=== PATIENT | male | born 1985 | race Caucasian/White ===

== ENCOUNTER 2017-03-17 19:31 | Emergency (ER) | payer SELFPAY ==
[2017-03-17 19:42] VITALS: RESP 18; TEMP 97.9; O2SAT 100
[2017-03-17] MEDS ORDERED: Oxycodone/Acetaminophen 5/325 mg Tab PO STA (20:05)
[2017-03-17] MEDS ORDERED: Oxycodone/Acetaminophen 5/325 mg Tab ONE (20:13)
--- NOTE | 2017-03-17 20:36 | C.PDOC ---
History Of Present Illness A 31 year old male presents to the emergency room with complaints of left upper toothache for 4 days. Patient reports that he took Motrin with some relief but it is no longer helping. Patient notes a dental appointment on 03/20/17. Patient denies any headaches, dizziness, fever, chills, nausea, vomiting, or any other complaints. Time Seen by Provider: 03/17/17 19:51 Chief Complaint (Nursing): Dental Pain History Per: Patient History/Exam Limitations: no limitations Onset/Duration Of Symptoms: Days (4) Current Symptoms Are (Timing): Still Present Severity: Mild Quality: Positive for: "Pain" Recent travel outside of the [place]: No Past Medical History Reviewed: Historical Data, Nursing Documentation, Vital Signs Vital Signs: Last Vital Signs Temp 97.9 F 03/17/17 19:39 Pulse 79 03/17/17 20:36 Resp 18 03/17/17 20:36 BP 135/75 03/17/17 20:36 Pulse Ox 100 03/17/17 21:26 Family History: States: Unknown Family Hx - Social History Hx Tobacco Use: Yes Hx Alcohol Use: Yes Hx Substance Use: No - Immunization History Hx Tetanus Toxoid Vaccination: No Hx Influenza Vaccination: No Hx Pneumococcal Vaccination: No Review Of Systems Except As Marked, All Systems Reviewed And Found Negative. Constitutional: Negative for: Fever, Chills ENT: Positive for: Other (Left upper toothache) Gastrointestinal: Negative for: Nausea, Vomiting, Diarrhea Neurological: Negative for: Headache, Dizziness Physical Exam - Physical Exam Appears: Well, Non-toxic Skin: Normal Color, Warm, Dry, No Rash Head: Atraumatic, Normacephalic Eye(s): bilateral: Normal Inspection, EOMI Ear(s): Bilateral: Normal Nose: Normal, No Discharge, No Tenderness Oral Mucosa: Moist Tongue: Normal Appearing, No Swelling, No Erythema, No Other (elevation of floor of the mouth) Lips: Normal Appearing, No Swelling, No Erythema Teeth: Caries (deep caries to the upper left posterior molar with localized gingival tenderness.) Gingiva: Erythema (localized left upper ), No Swelling, Tender Throat: Normal Neck: Normal, Normal ROM, No Midline Cervical Tenderness, No Paracervical Tenderness, Supple Neurological/Psych: Oriented x3, Normal Speech, Normal Cognition ED Course And Treatment O2 Sat by Pulse Oximetry: 100 Reassessment Condition: Improved Medical Decision Making Medical Decision Making: Impression: A 31 year old male with a left upper toothache. Deep caries to upper left molar with localized gingival tenderness noted on examination. Plan: -- Percocet & Penicillin VK Progress notes: Patient given Percocet & Penicillin VK. On reassessment, patient is resting comfortably, and is in no acute distress. Patient is afebrile and is tolerating PO. 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 Disposition Counseled Patient/Family Regarding: Diagnosis, Need For Followup, Rx Given - Disposition Referrals: Dentist, PMD [Other] Disposition: HOME/ ROUTINE Disposition Time: 20:35 Condition: STABLE Additional Instructions: Please follow up with dentist Return to ER if worse Prescriptions: Acetaminophen with Codeine [Tylenol with Codeine #3 Tablet] 2 each PO QID #14 tablet Penicillin VK [Pen-Vee K] 2 tab PO BID #28 tab Instructions: Dental Caries (ED) - Clinical Impression Clinical Impression: Dental caries, Toothache - Scribe Statement The provider has reviewed the documentation as recorded by the Mahoganyible Benjamin All medical record entries made by the Mahoganyible were at my direction and personally dictated by me. I have reviewed the chart and agree that the record accurately reflects my personal performance of the history, physical exam, medical decision making, and the department course for this patient. I have also personally directed, reviewed, and agree with the discharge instructions and disposition.
[2017-03-17 20:37] VITALS: BP 135/75; PULSE 79
== END 2017-03-17 20:38 | disposition home or self-care (01) ==
LOC: C.ER 19:31
DX: K02.9 Dental caries, unspecified (principal)

== ENCOUNTER 2018-03-09 15:49 | Emergency (ER) | payer SELFPAY ==
[2018-03-09 16:06] VITALS: BMI 23.7
[2018-03-09 16:08] VITALS: BP 138/75; PULSE 80; RESP 18; TEMP 98.5; O2SAT 100
--- NOTE | 2018-03-09 16:28 | C.PDOC ---
History Of Present Illness 32 y/o male comes in to the ED for evaluation of left upper toothache gradually developed for the past 2-3 days. Since this morning he developed some left upper cheek swelling. Patient denies fever, chills, recent illness, headache, dizziness, drooling, trismus, throat swelling or tightness, dyspnea, SOB, cough , denies recent dental work. Ambulate to Ed for evaluation, not in any apparent distress. Time Seen by Provider: 03/09/18 16:14 Chief Complaint (Nursing): Dental Pain History Per: Patient History/Exam Limitations: no limitations Onset/Duration Of Symptoms: Days Current Symptoms Are (Timing): Still Present Past Medical History Reviewed: Historical Data, Nursing Documentation, Vital Signs Vital Signs: Last Vital Signs Temp 98.5 F 03/09/18 16:07 Pulse 80 03/09/18 16:07 Resp 18 03/09/18 16:07 BP 138/75 03/09/18 16:07 Pulse Ox 100 03/09/18 16:44 - Medical History PMH: No Chronic Diseases Surgical History: Hernia Repair Family History: States: Unknown Family Hx - Social History Hx Tobacco Use: Yes Hx Alcohol Use: Yes Hx Substance Use: No - Immunization History Hx Tetanus Toxoid Vaccination: No Hx Influenza Vaccination: No Hx Pneumococcal Vaccination: No Review Of Systems Except As Marked, All Systems Reviewed And Found Negative. Constitutional: Negative for: Fever, Chills ENT: Positive for: Mouth Swelling (and dental pain). Negative for: Other ( drooling) Physical Exam - Physical Exam Appears: Well, Non-toxic, No Acute Distress Skin: Normal Color, Warm, Dry, No Rash Head: Normacephalic Eye(s): bilateral: PERRL Ear(s): Bilateral: Normal Nose: No Flaring, No Discharge, No Deformity, No Tenderness Oral Mucosa: Moist, No Drooling, No Trismus Tongue: Normal Appearing Lips: Normal Appearing Teeth: Caries (left upper 2nd premolar large cavity with gingival edema and erythema) Gingiva: Erythema, Swelling, Abscess (at left upper 2nd molar) Throat: No Erythema, No Drooling, Other (Uvula midline, no edmea.) Neck: Trachea Midline, Supple Respiratory: No Decreased Breath Sounds, No Accessory Muscle Use, No Stridor, No Wheezing Neurological/Psych: Oriented x3, Normal Speech ED Course And Treatment O2 Sat by Pulse Oximetry: 100 (RA) Pulse Ox Interpretation: Normal Progress Note: On re-evaluation, pt is awake, comfortable, not in any apparent distress. Afebrile, hemodynamicaly stable. PulseOx 100% RA. Neck: SUpple, (- ) meningeal sign. ENT: exam c/w Left upper 2nd premolar tooth abscess, no facial cellulitis. No drooling, no trismus. Uvula midline, no edema. Lungs: CTA B/L, BS equal B/L. Neurologicaly intact. Pt advised on course of ds. Pt denies allergy to penicillin. Abx given. ref. to f/u with Dentist in 2 days for re-eval. return to ED if any worsening or new changes. Disposition Counseled Patient/Family Regarding: Diagnosis, Need For Followup, Rx Given - Disposition Referrals: [facility] [Provider Group] [facility] [Provider Group] Disposition: HOME/ ROUTINE Disposition Time: 16:29 Condition: STABLE Additional Instructions: Warm salty water tooth baths 2-3 times daily Take medication as prescribed Follow up wit Dentist in 2-3 days for re-evaluation. Return to ED if any worsening or new changes. Prescriptions: Penicillin VK [Pen-Vee K] 2 tab PO BID #28 tab traMADol [Ultram] 50 mg PO TID #7 tab Instructions: Tooth Abscess (DC) Forms: [facility] (Sudanese) - POA Present On Arrival: None - Clinical Impression Clinical Impression: Dental abscess - PA / APPAREL STOCK CHECKER / Resident Statement MD/DO has reviewed & agrees with the documentation as recorded. - Scribe Statement The provider has reviewed the documentation as recorded by the Scribe (Sharon Carter) All medical record entries made by the Scribe were at my direction and personally dictated by me. I have reviewed the chart and agree that the record accurately reflects my personal performance of the history, physical exam, medical decision making, and the department course for this patient. I have also personally directed, reviewed, and agree with the discharge instructions and disposition.
== END 2018-03-09 16:35 | disposition home or self-care (01) ==
LOC: C.ER 15:49
DX: K04.7 Periapical abscess without sinus (principal)